=== PATIENT | male | born 1965 | race Caucasian/White ===

== ENCOUNTER 2018-04-05 14:59 | Inpatient (IN) | payer BC ==
[2018-04-05] MEDS ORDERED: Morphine 4 MG/ML VIAL ONE ×2 (15:26→16:57)
[2018-04-05] MEDS ORDERED: Bupivacaine/Epinephrine 0.25% 30 ML VIAL ONE (16:53)
[2018-04-05] MEDS ORDERED: Fentanyl 100 MCG/2 ML VIAL ONE ×2 (17:27→19:09)
[2018-04-05] MEDS ORDERED: Famotidine/PF 20 mg/2ml Vial ONE (17:27)
[2018-04-05] MEDS ORDERED: cefOXitin Sodium/Dextrose,Iso 2 GM in Premix Bag 1 BAG IVPB SCH (17:45)
--- NOTE | 2018-04-05 18:11 | HP ---
CHIEF COMPLAINT: Right lower quadrant abdominal pain. HISTORY: The patient is a 52-year-old male with a 5-day history of right lower quadrant pain associated with nausea, no vomiting. He has had a fever 3 days ago. He does have chills. He has had a lack of appetite. He had a CT scan showing appendicitis. PAST MEDICAL HISTORY: Otherwise healthy. PAST SURGICAL HISTORY: He has had a colonoscopy, knee scope. No surgery. MEDICATIONS: None. ALLERGIES: NO KNOWN DRUG ALLERGIES. SOCIAL HISTORY: He is . division engineer. Smokes 2 to 3 cigars a day. Social alcohol. FAMILY HISTORY: Diabetes, stomach cancer, bone cancer. PHYSICAL EXAMINATION: VITAL SIGNS: Temperature 98.3, pulse 89, and blood pressure 144/91. He looks uncomfortable. HEENT: Otherwise unremarkable. LUNGS: Clear. HEART: Regular rate and rhythm. ABDOMEN: Tender in the right lower quadrant. No palpable masses. EXTREMITIES: Unremarkable. LABORATORY DATA: His white count 14.4, H and H 15 and 45, platelet count 295. Urinalysis shows some blood, 11 to 20 rbc's. His electrolytes; sodium 139, potassium 3.5, chloride 105, CO2 of 24, creatinine 0.86. ASSESSMENT: Acute appendicitis, probable ruptured. PLAN: Laparoscopic appendectomy and drainage of periappendiceal abscess. CONSENT: I have discussed the planned procedure as well as risk of bleeding, infection, injury to bowel, bladder, and need to open. He understands and gives informed consent. Job ID: [id number]
[2018-04-05] MEDS ORDERED: Meperidine HCl/PF 25 MG/ML VIAL SLOW IVP PRN (18:38)
[2018-04-05] MEDS ORDERED: Promethazine HCl 25 MG/ML VIAL SLOW IVP PRN (18:38)
[2018-04-05] MEDS ORDERED: Ondansetron HCl/PF 4 MG/2 ML Vial IVP PRN (18:38)
[2018-04-05] MEDS ORDERED: Promethazine HCl 25 MG/ML VIAL IM PRN ×2 (18:38→18:47)
[2018-04-05] MEDS ORDERED: Ondansetron PF 4 MG/2 ML Vial IVP PRN (18:47)
[2018-04-05] MEDS ORDERED: Dextrose 5% in Water 1,000 ML IV PRN (18:47)
[2018-04-05] MEDS ORDERED: Dextrose 50% Abboject 50 ML SYRINGE SLOW IVP PRN (18:47)
[2018-04-05] MEDS ORDERED: Morphine 4 MG/ML VIAL SLOW IVP PRN ×2 (18:47)
[2018-04-05] MEDS ORDERED: HYDROcodone/Acetaminophen 10/325 mg Tablet PO PRN (18:47)
[2018-04-05] MEDS ORDERED: hydrALAZINE 20 MG/ML VIAL SLOW IVP PRN (18:47)
[2018-04-05] MEDS ORDERED: SUGAMMADEX SODIUM 200 MG/2 ML VIAL ONE (18:49)
[2018-04-05] MEDS: Famotidine/PF 20 mg/2ml Vial SLOW IVP SCH (20:54)
[2018-04-05] MEDS: D5 1/2 NS w/20 mEq KCL 1,000 ML IV SCH (20:54)
[2018-04-05] MEDS: Famotidine 20 MG TAB PO SCH (23:04)
[2018-04-05 23:17] VITALS: BMI 26.4
[2018-04-06] MEDS: Ketorolac Tromethamine 30 MG/ML VIAL IVP SCH ×3 (00:41→11:28)
[2018-04-06] MEDS: Piperacillin/Tazobactam 3.375 GM in Sodium Chloride 0.9% 100 ML IVPB SCH ×3 (00:42→11:27)
[2018-04-06] MEDS: D5 1/2 NS w/20 mEq KCL 1,000 ML IV SCH (05:23)
[2018-04-06] MEDS: HYDROcodone/Acetaminophen 10/325 mg Tablet PO PRN ×2 (05:23→11:28)
[2018-04-06 06:37] LABS: #Lymphocytes 1.2 thou/uL (1.20-3.40); #Monocytes 0.6 thou/uL (0.11-0.59); #Neutrophils 9.7 thou/uL (1.40-6.50); %Basophils 0.1 % (0.0-1.0); %Eosinophils 0.1 % (0.0-10.0); %Lymphocytes 10.5 % (21.0-51.0); %Monocytes 5.4 % (0.0-10.0); Hemoglobin 13.2 g/dL (14.0-18.0); Mean Corpuscular HGB CONC 33.6 g/dL (32.0-36.0); Mean Corpuscular Hemoglobin 32.8 pg (27.0-31.0); Mean Corpuscular Volume 97.6 fL (78.0-98.0); Mean Platelet Volume 7.1 fL (7.4-10.4); Platelet Count 257 thou/uL (130-400); RBC Distribution Width 11.4 % (11.5-14.5); Red Blood Cell (RBC) Count 4.04 mill/uL (4.70-6.10); White Blood Cell (WBC) Count 11.6 thou/uL (4.8-10.8)
[2018-04-06 06:54] LABS: Anion Gap 11 mmol/L (10-20); BUN (Urea Nitrogen) 9 mg/dL (8.4-25.7); Calc. Creatinine Clearance 132 mL/min (70-130); Calcium 8.4 mg/dL (7.8-10.44); Carbon Dioxide 23 mmol/L (22-29); Chloride 107 mmol/L (98-107); Estimated GFR-MDRD Greater than 90; Glucose 163 mg/dL (70-105); Potassium 4.6 mmol/L (3.5-5.1); Sodium 136 mmol/L (136-145)
--- NOTE | 2018-04-06 07:44 | OP ---
DATE OF PROCEDURE: 04/05/2018 PREOPERATIVE DIAGNOSIS: Acute appendicitis. PROCEDURE PERFORMED: Laparoscopic appendectomy and drainage of periappendiceal abscess. INDICATIONS: This is a 52-year-old male with a 5-day history of right lower quadrant pain, fever, leukocytosis. CT scan showing appendicitis with a periappendiceal abscess. FINDINGS: Acute ruptured appendicitis with abscess. DESCRIPTION OF PROCEDURE: After informed consent was obtained, the patient was taken to the operating room and given general endotracheal anesthesia, placed in supine position. Abdomen was prepped and draped in usual fashion local anesthesia infiltrated subcutaneously and deep. A subumbilical incision was performed. Subcu divided sharply. The fascia grasped and 2 stay sutures of 0 Vicryl were placed each side of midline. Midline was incised. Digital palpation revealed no local adhesions. A blunt 10/12 trocar inserted. Pneumoperitoneum was created to a pressure of 15 mmHg. Under direct vision, two 5 mm ports were placed; one suprapubic and one right lateral abdomen. The appendix was retrocecal and also more right upper quadrant. The cecum was reflected medially and the base of the appendix was found. This was able to be traced down to its tip, which was embedded in an abscess cavity of purulent fluid. This was aspirated and collected for culture. Also, the abscess cavity was irrigated out. The mesoappendix divided utilizing the LigaSure. The base the appendix was divided utilizing a linear 45 mm white load stapler. The appendix was placed in endosac, removed from the abdomen in the endosac. Hemostasis assured. Again, the wound was irrigated and a drain was placed and brought out through the suprapubic incision placed along the right gutter into the abscess cavity. Hemostasis assured. Trocars and retractors removed. The fascia was closed with interrupted 0 Vicryl suture. The skin closed with interrupted 4-0 Rapide. Sterile bandage and Dermabond applied. The patient tolerated the procedure well, transferred to Recovery in good condition. Sponge and needle count verified correct x2. Job ID: [id number]
[2018-04-06] MEDS: Famotidine/PF 20 mg/2ml Vial SLOW IVP SCH (08:22)
[2018-04-06] MEDS: Famotidine 20 MG TAB PO SCH (08:22)
[2018-04-06] MEDS ORDERED: Enoxaparin Sodium 40 MG/0.4 ML SYRINGE SC SCH (09:00)
[2018-04-06 12:33] VITALS: TEMP 97.8
--- NOTE | 2018-04-06 14:09 | DIS ---
DATE OF ADMISSION: 04/05/2018 DATE OF DISCHARGE: 04/06/2018 DISCHARGE DIAGNOSIS: Acute perforated appendicitis. PROCEDURES DURING ADMISSION: Laparoscopic appendectomy and drainage of periappendiceal abscess. HOSPITAL COURSE: The patient was admitted, taken to the operating room, where he underwent a laparoscopic appendectomy. He was found to have a small abscess cavity around the appendix with a necrotic appendix, was retrocecal as well. A drain was left. Postoperatively, he has done well. Culture grew out Gram-negative rods. He is discharged home on hydrocodone, Zofran, and Bactrim. He will follow up with me in 2 weeks. Job ID: [id number]
[2018-04-06 14:10] VITALS: BP 115/67
== END 2018-04-06 14:05 | disposition home or self-care (01) | DRG 340 ==
LOC: ERS 14:59 → SURG B 15:58 → SDC 16:58 → SURG B 18:47
PROVIDERS: ADMIT Surgery; ATTEND Surgery
PROC: 0DTJ4ZZ Resection of Appendix, Percutaneous Endoscopic Approach (ICD-10-PCS; principal; 2018-04-05)
DX: K35.33 Acute appendicitis with perforation, localized peritonitis, and gangrene, with abscess (principal)
CPT/HCPCS: 36415; 80048; 85025; 87070; 87205; 88304; 96374; 96376; J0131; J1650; J1885; J2270; J2543; J3010; J7050; S0028